=== PATIENT | female | born 1960 | race Caucasian/White ===

== ENCOUNTER 2016-09-30 21:56 | Inpatient (IN) | payer OTHER ==
[~2016-09-30] VITALS: Ht 165.1 cm; Wt 47.6 kg
[2016-09-30] MEDS ORDERED: HIV MEDS (22:07)
[2016-09-30] MEDS ORDERED: QUETIAPINE FUMA25 MG ORAL (22:07)
[2016-09-30] MEDS ORDERED: JANUVIA25 MG ORAL (22:07)
[2016-09-30 23:40] LABS: BASOPHILS % (AUTO) 0.2 % (0.0-2.0); LYMPHOCYTES % (AUTO) 9.9 % (20.0-45.0); MEAN CORPUSCULAR HGB CONC 33.4 G/DL (32.0-36.0); MEAN CORPUSCULAR VOLUME 93 FL (80-99); MEAN PLATELET VOLUME 5.9 FL (6.5-10.1); MONOCYTES % (AUTO) 5.3 % (1.0-10.0); NEUTROPHILS % (AUTO) 84.6 % (45.0-75.0); PLATELET COUNT 183 K/UL (150-450); RED BLOOD COUNT 4.77 M/UL (4.20-5.40); RED CELL DISTRIBUTION WIDTH 11.8 % (11.6-14.8)
[2016-09-30 23:47] LABS: TROPONIN I < 0.30 ng/mL (<=0.30)
[2016-09-30 23:48] LABS: ALBUMIN/GLOBULIN RATIO 1.5 (1.0-2.7); CALCIUM 9.9 mg/dL (8.6-10.2); CREATININE 4.3 mg/dL (0.5-0.9); GLOMERULAR FILTRATION RATE 10.7 mL/min (>60); POTASSIUM 4.1 mEQ/L (3.4-4.9); TOTAL PROTEIN 9.3 g/dL (6.6-8.7)
[2016-09-30 23:58] LABS: CKMB 125.1 ng/mL (< 3.8)
[2016-10-01] VITALS (8 sets, daily range): BP systolic 94–137; BP diastolic 59–89
[2016-10-01] MEDS ORDERED: LORazepam Inj 2mg/ml 1ml IV ONE (01:00)
--- NOTE | 2016-10-01 01:15 | Emergency Room Report ---
History of Present Illness General Chief Complaint: Pain Source: Patient, EMS Present Illness HPI 56YOF [place]EMS [place]. Patient endorses difficulty ambulating d/t weakness bilateral extremities but unsure for how long. Denies any trauma. Notes HIV history but doesnt have her medications " with me." Denies chest pain, SOB, abd pain. Denies ETOH, drug use. States she is living in the [address]. Repeatedly asking for water. Allergies: Coded Allergies: No Known Allergies (Unverified , 09/30/16) Patient History Past Medical History: HIV Past Surgical History: none Pertinent Family History: none Social History: Denies: alcohol use, drug use, smoking Now: No Immunizations: UTD Reviewed Nursing Documentation: PMH: Agreed, PSxH: Agreed Nursing Documentation-PMH Hx Diabetes: Yes History Of Psychiatric Problem: Yes Review of Systems All Other Systems: negative except mentioned in HPI Physical Exam Vital Signs Date Time Temp Pulse Resp B/P Pulse Ox O2 Delivery O2 Flow Rate FiO2 09/30/16 21:59 96.6 118 16 120/68 99 Room Air Sp02 EP Interpretation: reviewed, abnormal General Appearance: normal inspection, no apparent distress, alert, GCS 15, non -toxic, cachetic, thin, other - emaciated, unkempt, anxious Head: normocephalic, atraumatic Eyes: bilateral eye EOMI, bilateral eye PERRL ENT: normal ENT inspection, hearing grossly normal, normal voice, dry mucus membranes Neck: normal inspection, full range of motion, supple, no bony tend Respiratory: normal inspection, lungs clear, normal breath sounds, no respiratory distress, no retraction, no wheezing Cardiovascular #1: regular rate, rhythm, no edema, tachycardia Gastrointestinal: normal inspection, normal bowel sounds, non tender, soft, no guarding, no hernia Genitourinary: no CVA tenderness Musculoskeletal: normal inspection, back normal, normal range of motion, Leann' s Sign negative Neurologic: normal inspection, alert, oriented x3, responsive, learning support resource room teacher III-XII nml as tested, motor strength/tone normal, speech normal Psychiatric: normal inspection, judgement/insight normal, mood/affect normal Skin: normal inspection, normal color, no rash, other - Poor turgor, dehydrated Medical Decision Making Diagnostic Impression: Primary Impression: Lower extremity weakness Qualified Codes: R29.898 - Other symptoms and signs involving the musculoskeletal system Additional Impressions: MARIA ESTHER (acute kidney injury) Rhabdomyolysis Qualified Codes: M62.82 - Rhabdomyolysis Hypernatremia Anxiety ER Course Lower extremity weakness, bilateral - VS notable for tachycardia. Afebrile. - No obvious deficit in motor strength on exam but is unsteady on feet. Dry tugor, clinically dehydrated -CT head negative - Labs with ?MARIA ESTHER with significant rhabdo. K normal. Minor hypernatremia. Likely hypovolumic hypernatremia d/t dehydration. - 2L NS IVF given in ED for rhabdo, dehydration Anxiety - Patient repeatedly walking around ED, cant sit still. Very anxious. ? underlying psych, possibly related to advanced HIV? - Was given ativan in ED with mild improvement - QTc was normal on ECG so was also given Haldol as patient repeatedly trying to get up from stretcher, very anxious appearing Endorsed to Dr Amador for tele admission at 2am EKG Diagnostic Results Rate: tachycardiac Rhythm: NSR ST Segments: no acute changes Rhythm Strip Diag. Results EP Interpretation: yes Rate: 111 Rhythm: NSR, no PVC's, no ectopy Chest X-Ray Diagnostic Results Chest X-Ray Ordered: Yes # of Views/Limited/Complete: 1 View Interpretation: no consolidation, no effusion, no pneumothorax, no acute cardiopulmonary disease Indication: Chest Pain Impression: No acute disease Date Electronically Signed: Oct 01, 2016 Time Electronically Signed: 01:24 Interpreting ER Physician: Fili Last Vital Signs Date Time Temp Pulse Resp B/P Pulse Ox O2 Delivery O2 Flow Rate FiO2 09/30/16 21:59 96.6 118 16 120/68 99 Room Air Status: improved Disposition: ADMITTED INPATIENT Condition: Serious Referrals: NOT CHOSEN IPA/,REFERRING (PCP) CUCO MULLINS M.D. Oct 01, 2016 01:15
[2016-10-01] MEDS ORDERED: Haloperidol 5mg/ml Inj IM ONE (01:45)
[2016-10-01] MEDS ORDERED: LORazepam 1mg tab ORAL ONE (01:45)
[2016-10-01] MEDS ORDERED: Miralax 17gm pkt ORAL PRN (05:45)
[2016-10-01] MEDS ORDERED: DuoNeb 0.5-3(2.5)mg/3ml neb HHN PRN (05:45)
[2016-10-01] MEDS ORDERED: Mylanta II UD 30ml ORAL PRN (05:45)
[2016-10-01] MEDS ORDERED: Morphine Sulfate 2mg/ml Inj IVP PRN (05:45)
[2016-10-01] MEDS ORDERED: Zolpidem 5mg tab ORAL PRN (05:45)
[2016-10-01] MEDS: NovoLOG Insulin Flexpen SUBQ SCH ×4 (07:24→21:00)
[2016-10-01] MEDS: Heparin 5000 units/ml inj SUBQ SCH ×2 (08:10→21:32)
--- NOTE | 2016-10-01 08:54 | Diagnostic Imaging Report ---
Indication: Shortness of breath Technique: Single portable AP view of the chest. Findings: Comparison: None. Bones appear mildly, diffusely demineralized. Focal chronic appearing deformity distal end right clavicle. Mild S-shaped scoliosis thoracolumbar spine. The Extra pulmonary soft tissues, cardiomediastinal silhouette, pulmonary vasculature and parenchyma, and pleural surfaces are unremarkable. IMPRESSION: No evidence of acute cardiopulmonary disease Osteopenia, prominent for age Scoliosis. Right clavicle deformity most likely old fracture. Correlate historically.
--- NOTE | 2016-10-01 08:59 | Diagnostic Imaging Report ---
Indications: Dizziness Technique: Continuous helical CT imaging of the brain was performed with automatic exposure control on a Siemens sensation [address] scanner. Axial and coronal images were reconstructed at 5 mm slice thickness and interval. CTDI volume(s): 70 mGy Total DLP: 1453 mGy-cm Findings: Comparison: None. Intracranial anatomy is unremarkable. No evidence of mass or hemorrhage, other attenuation abnormality, mass effect, midline shift, hydrocephalus or increased intracranial pressure. Bone window images are unremarkable. Visualized paranasal sinuses and mastoid air cells are clear. Nodular calcifications are present in the soft tissues of the pinna of the left ear IMPRESSION: Left ear soft tissue calcifications, nonspecific, likely secondary to previous insult Otherwise negative noncontrast CT scan of the brain . Early/subtle acute abnormalities may be missed, however. If clinically indicated, MRI of the brain without and with gadolinium may be of benefit in further evaluation. This correlates with [facility] preliminary report. The CT scanner at [facility] is accredited by the [employer] and the scans are performed using protocols designed to limit radiation exposure to as low as reasonably achievable to attain images of sufficient resolution adequate for diagnostic evaluation.
[2016-10-01 10:30] LABS: ALANINE AMINOTRANSFERASE 66 U/L (3-33); ALBUMIN/GLOBULIN RATIO 1.5 (1.0-2.7); ANION GAP 20 (5-15); ASPARTATE AMINO TRANSFERASE 305 U/L (5-40); CALCIUM 8.5 mg/dL (8.6-10.2); CARBON DIOXIDE 18 mEQ/L (20-30); CHLORIDE 109 mEQ/L (98-107); CREATININE 3.3 mg/dL (0.5-0.9); GLOMERULAR FILTRATION RATE 14.5 mL/min (>60); HEMOLYSIS 3; MAGNESIUM 2.9 mg/dL (1.7-2.5); PHOSPHORUS 7.9 mg/dL (2.5-4.8); POTASSIUM 3.6 mEQ/L (3.4-4.9); SODIUM 147 mEQ/L (135-145); TOTAL PROTEIN 7.1 g/dL (6.6-8.7); URIC ACID 11.2 mg/dL (3.0-7.5)
--- NOTE | 2016-10-01 22:13 | History and Physical ---
History of Present Illness General Date patient seen: Oct 01, 2016 Reason for Hospitalization: Pain Present Illness HPI 56 year old female with hx of HIV [place] in [place] param[place]ics [place] Patient complains of difficulty ambulating d/t weakness bilateral extremities but unsure for how long. Denied ETOH, drug use. States she is living in the [address]. Pt was diagnosed to have acute renal failure and admitted for further treatment. Allergies: Coded Allergies: No Known Allergies (Unverified , 09/30/16) Medication History Scheduled Quetiapine Fumarate* (Seroquel*), 25 MG ORAL DAILY, (Reported) Sitagliptin* (Januvia*), 25 MG ORAL DAILY, (Reported) Miscellaneous Medications [Hiv Meds], (Reported) Patient History Healthcare decision maker Resuscitation status Full Code Advanced Directive on File Past Medical/Surgical History Past Medical/Surgical History: (1) HIV disease Review of Systems Constitutional: Reports: malaise, weakness Musculoskeletal: Reports: muscle pain, muscle stiffness All Other Systems: negative except mentioned in HPI Physical Exam General Appearance: cachetic Lines, tubes and drains: peripheral HEENT: normocephalic, atraumatic Neck: non-tender, normal alignment Respiratory/Chest: chest wall non-tender, lungs clear Cardiovascular/Chest: normal peripheral pulses, normal rate Abdomen: normal bowel sounds, non tender Genitourinary/Rectal: normal genital exam Extremities: normal range of motion Last 24 Hour Vital Signs Date Time Temp Pulse Resp B/P Pulse Ox O2 Delivery O2 Flow Rate FiO2 10/01/16 20:00 97.9 71 18 99/59 100 Room Air 10/01/16 19:45 84 18 Room Air 21 10/01/16 16:00 92 10/01/16 16:00 97.2 84 16 109/70 93 Room Air 80 10/01/16 12:00 97.0 83 16 96/64 96 Room Air 80 10/01/16 12:00 83 10/01/16 08:08 87 17 Room Air 21 10/01/16 08:00 97.0 89 17 114/71 94 Room Air 86 10/01/16 08:00 100 10/01/16 04:40 97.5 69 20 99/61 99 Room Air 10/01/16 04:39 97.5 89 24 112/71 97 Room Air 10/01/16 03:49 89 24 112/71 97 Room Air 10/01/16 01:50 120 18 119/67 100 Room Air 10/01/16 00:15 97.5 106 24 137/89 99 Room Air Intake and Output 09/30/16 10/01/16 19:00 07:00 Intake Total 1000 ml Balance 1000 ml Intake Oral 0 ml IV Total 1000 ml Laboratory Tests Test 09/30/16 23:05 10/01/16 09:40 White Blood Count 11.0 K/UL (4.8-10.8) H Red Blood Count 4.77 M/UL (4.20-5.40) Hemoglobin 14.8 G/DL (12.0-16.0) Hematocrit 44.2 % (37.0-47.0) Mean Corpuscular Volume 93 FL (80-99) Mean Corpuscular Hemoglobin 31.0 PG (27.0-31.0) Mean Corpuscular Hemoglobin Concent 33.4 G/DL (32.0-36.0) Red Cell Distribution Width 11.8 % (11.6-14.8) Platelet Count 183 K/UL (150-450) Mean Platelet Volume 5.9 FL (6.5-10.1) L Neutrophils (%) (Auto) 84.6 % (45.0-75.0) H Lymphocytes (%) (Auto) 9.9 % (20.0-45.0) L Monocytes (%) (Auto) 5.3 % (1.0-10.0) Eosinophils (%) (Auto) 0.0 % (0.0-3.0) Basophils (%) (Auto) 0.2 % (0.0-2.0) Sodium Level 151 mEQ/L (135-145) H 147 mEQ/L (135-145) H Potassium Level 4.1 mEQ/L (3.4-4.9) 3.6 mEQ/L (3.4-4.9) Chloride Level 105 mEQ/L (98-107) 109 mEQ/L (98-107) H Carbon Dioxide Level 19 mEQ/L (20-30) L 18 mEQ/L (20-30) L Anion Gap 27 (5-15) H 20 (5-15) H Blood Urea Nitrogen 70 mg/dL (7-23) H 75 mg/dL (7-23) H Creatinine 4.3 mg/dL (0.5-0.9) H 3.3 mg/dL (0.5-0.9) H Estimat Glomerular Filtration Rate 10.7 mL/min (>60) 14.5 mL/min (>60) Glucose Level 126 mg/dL (74-106) H 145 mg/dL (74-106) H Calcium Level 9.9 mg/dL (8.6-10.2) 8.5 mg/dL (8.6-10.2) L Total Bilirubin 0.7 mg/dL (0.0-1.2) 0.6 mg/dL (0.0-1.2) Aspartate Amino Transf (AST/SGOT) 321 U/L (5-40) H 305 U/L (5-40) H Alanine Aminotransferase (ALT/SGPT) 68 U/L (3-33) H 66 U/L (3-33) H Alkaline Phosphatase 57 U/L (35-104) 42 U/L (35-104) Total Creatine Kinase 1413 U/L (26-140) H 1313 U/L (26-140) H Creatine Kinase MB 125.1 ng/mL (< 3.8) H Creatine Kinase MB Relative Index 8.8 Troponin I < 0.30 ng/mL (<=0.30) Total Protein 9.3 g/dL (6.6-8.7) H 7.1 g/dL (6.6-8.7) Albumin 5.7 g/dL (3.5-5.2) H 4.3 g/dL (3.5-5.2) Globulin 3.6 g/dL 2.8 g/dL Albumin/Globulin Ratio 1.5 (1.0-2.7) Pending Uric Acid 11.2 mg/dL (3.0-7.5) H Phosphorus Level 7.9 mg/dL (2.5-4.8) H Magnesium Level 2.9 mg/dL (1.7-2.5) H Total Protein (PEP) Pending Albumin (PEP) Pending Globulin (PEP) Pending Eprvx-2-[place] Pending Mueqd-7-Bbxcpivce Pending Beta Globulins Pending Beta Gamma Globulin Pending PEP Abnormal Protein Bands Pending Protein Electrophoresis Interpret Pending Free Thyroxine 1.21 ng/dL (0.86-1.85) Free Triiodothyronine Pending Height (Feet): 5 Height (Inches): 5.00 Weight (Pounds): 105 Medications Current Medications Medications (Trade) Dose Ordered Sig/Beth Route PRN Reason Start Time Stop Time Status Last Admin Dose Admin Acetaminophen (Tylenol) 650 mg Q4H PRN ORAL fever 10/01/16 05:45 10/31/16 05:44 Al Hydroxide/Mg Hydroxide (Mylanta II) 30 ml Q6H PRN ORAL dyspepsia 10/01/16 05:45 10/31/16 05:44 Albuterol/ Ipratropium (DuoNeb 0.5-3(2.5)mg/3ml) 3 ml Q6H PRN HHN dyspnea 10/01/16 05:45 10/06/16 05:44 Clonidine HCl (Catapres) 0.1 mg Q4H PRN ORAL For High Blood Pressure 10/01/16 05:45 10/31/16 05:44 Dextrose (Dextrose 50%) STAT PRN IV Hypoglycemia 10/01/16 05:45 10/31/16 05:44 Heparin Sodium (Porcine) (Heparin 5000 units/ml) 5,000 units EVERY 12 HOURS SUBQ 10/01/16 09:00 10/31/16 08:59 10/01/16 21:32 Insulin Aspart (NovoLOG) BEFORE MEALS AND HS SUBQ 10/01/16 06:30 10/31/16 06:29 10/01/16 12:48 Morphine Sulfate (Morphine Sulfate) 1 mg Q4H PRN IVP For Pain 10/01/16 05:45 10/08/16 05:44 Ondansetron HCl (Zofran) 4 mg Q6H PRN IVP Nausea & Vomiting 10/01/16 05:45 10/31/16 05:44 Polyethylene Glycol (Miralax) 17 gm HSPRN PRN ORAL Constipation 10/01/16 05:45 10/31/16 05:44 Quetiapine Fumarate (SEROquel) 25 mg QHS ORAL 10/01/16 21:00 10/31/16 20:59 10/01/16 21:29 Zolpidem Tartrate (Ambien) 5 mg HSPRN PRN ORAL Insomnia 10/01/16 05:45 10/31/16 05:44 Assessment/Plan Problem List: (1) ATN (acute tubular necrosis) ICD Codes: N17.0 - Acute kidney failure with tubular necrosis SNOMED: 72883476 (2) Rhabdomyolysis ICD Codes: M62.82 - Rhabdomyolysis SNOMED: 892946394 Qualifiers: Qualified Codes: M62.82 - Rhabdomyolysis (3) HIV disease ICD Codes: B20 - Human immunodeficiency virus [HIV] disease SNOMED: 88814159 Assessment/Plan IV fluids renal us check electrolytes pt/ot MINOO WORKMAN Oct 01, 2016 22:13
[2016-10-02] VITALS: BP 107/65
[2016-10-02 04:07] VITALS: BP 97/57
[2016-10-02 04:39] LABS: BASOPHILS % (AUTO) 0.8 % (0.0-2.0); EOSINOPHILS % (AUTO) 0.9 % (0.0-3.0); LYMPHOCYTES % (AUTO) 23.2 % (20.0-45.0); MEAN CORPUSCULAR HEMOGLOBIN 31.2 PG (27.0-31.0); MEAN CORPUSCULAR HGB CONC 34.5 G/DL (32.0-36.0); MEAN CORPUSCULAR VOLUME 91 FL (80-99); MEAN PLATELET VOLUME 5.8 FL (6.5-10.1); NEUTROPHILS % (AUTO) 69.1 % (45.0-75.0); PLATELET COUNT 104 K/UL (150-450); RED BLOOD COUNT 3.75 M/UL (4.20-5.40); RED CELL DISTRIBUTION WIDTH 11.4 % (11.6-14.8); WHITE BLOOD COUNT 6.2 K/UL (4.8-10.8)
[2016-10-02 04:59] LABS: ALBUMIN/GLOBULIN RATIO 1.4 (1.0-2.7); CALCIUM 8.5 mg/dL (8.6-10.2); CHOLESTEROL/HDL RATIO 4.2 (3.3-4.4); CREATININE 1.8 mg/dL (0.5-0.9); GLOMERULAR FILTRATION RATE 29.2 mL/min (>60); POTASSIUM 3.8 mEQ/L (3.4-4.9); TOTAL PROTEIN 6.2 g/dL (6.6-8.7)
[2016-10-02 05:13] LABS: THYROID STIMULATING HORMONE 0.282 uIU/mL (0.300-4.500)
[2016-10-02] MEDS: NovoLOG Insulin Flexpen SUBQ SCH ×5 (05:53→21:00)
[2016-10-02 08:24] VITALS: BP 96/66
[2016-10-02] MEDS: Heparin 5000 units/ml inj SUBQ SCH ×2 (09:24→20:56)
--- NOTE | 2016-10-02 11:19 | Consultation ---
SAVANNA MCCLOUD M.D. Oct 02, 2016 11:19
--- NOTE | 2016-10-02 11:44 | Pulmonology Progress Note ---
Assessment/Plan Problems: (1) ATN (acute tubular necrosis) (2) Rhabdomyolysis (3) HIV disease Assessment/Plan improving check electrolytes renal us renal and ID evaluation med/surg Subjective ROS Limited/Unobtainable: No Constitutional: Reports: no symptoms HEENT: Repors: no symptoms Respiratory: Reports: no symptoms Cardiovascular: Reports: no symptoms Gastrointestinal/Abdominal: Reports: no symptoms Genitourinary: Reports: no symptoms Allergies: Coded Allergies: No Known Allergies (Unverified , 09/30/16) Objective Last 24 Hour Vital Signs Date Time Temp Pulse Resp B/P Pulse Ox O2 Delivery O2 Flow Rate FiO2 10/02/16 08:24 98.2 73 18 96/66 96 Room Air 10/02/16 08:00 77 10/02/16 07:08 80 18 Room Air 21 10/02/16 04:07 97.5 67 20 97/57 97 Room Air 10/02/16 04:00 73 10/02/16 00:00 69 10/02/16 00:00 96.8 64 18 107/65 98 Room Air 10/01/16 20:00 71 10/01/16 20:00 97.9 71 18 99/59 100 Room Air 10/01/16 19:45 84 18 Room Air 21 10/01/16 16:00 92 10/01/16 16:00 97.2 84 16 109/70 93 Room Air 80 10/01/16 12:00 97.0 83 16 96/64 96 Room Air 80 10/01/16 12:00 83 Intake and Output 10/01/16 10/02/16 19:00 07:00 Intake Total 1460 ml Balance 1460 ml Intake Oral 460 ml IV Total 1000 ml # Voids 2 2 # Bowel Movements 2 General Appearance: WD/WN HEENT: normocephalic, atraumatic Respiratory/Chest: chest wall non-tender, lungs clear Breasts: no masses Cardiovascular: normal peripheral pulses Abdomen: normal bowel sounds, soft, non tender Genitourinary: normal external genitalia Skin: no rash Laboratory Tests 10/02/16 04:30: White Blood Count 6.2, Red Blood Count 3.75L, Hemoglobin 11.7L, Hematocrit 33.9L , Mean Corpuscular Volume 91, Mean Corpuscular Hemoglobin 31.2H, Mean Corpuscular Hemoglobin Concent 34.5, Red Cell Distribution Width 11.4L, Platelet Count 104L, Mean Platelet Volume 5.8L, Neutrophils (%) (Auto) 69.1, Lymphocytes (%) (Auto) 23.2, Monocytes (%) (Auto) 6.0, Eosinophils (%) (Auto) 0.9, Basophils (%) (Auto) 0.8, Sodium Level 146H, Potassium Level 3.8, Chloride Level 110H, Carbon Dioxide Level 22, Anion Gap 14, Blood Urea Nitrogen 52H, Creatinine 1.8H, Estimat Glomerular Filtration Rate 29.2, Glucose Level 94, Hemoglobin A1c 5.0, Calcium Level 8.5L, Total Bilirubin 0.6, Aspartate Amino Transf (AST/SGOT) 552H, Alanine Aminotransferase (ALT/SGPT) 126H, Alkaline Phosphatase 38, Total Protein 6.2L, Albumin 3.7, Globulin 2.5, Albumin/Globulin Ratio 1.4, Triglycerides Level 118, Cholesterol Level 152, LDL Cholesterol 92, HDL Cholesterol 36, Cholesterol/HDL Ratio 4.2, Thyroid Stimulating Hormone (TSH ) 0.282L Current Medications Medications (Trade) Dose Ordered Sig/Beth Route PRN Reason Start Time Stop Time Status Last Admin Dose Admin Acetaminophen (Tylenol) 650 mg Q4H PRN ORAL fever 10/01/16 05:45 10/31/16 05:44 Al Hydroxide/Mg Hydroxide (Mylanta II) 30 ml Q6H PRN ORAL dyspepsia 10/01/16 05:45 10/31/16 05:44 Albuterol/ Ipratropium (DuoNeb 0.5-3(2.5)mg/3ml) 3 ml Q6H PRN HHN dyspnea 10/01/16 05:45 10/06/16 05:44 Clonidine HCl (Catapres) 0.1 mg Q4H PRN ORAL For High Blood Pressure 10/01/16 05:45 10/31/16 05:44 Dextrose (Dextrose 50%) STAT PRN IV Hypoglycemia 10/01/16 05:45 10/31/16 05:44 Heparin Sodium (Porcine) (Heparin 5000 units/ml) 5,000 units EVERY 12 HOURS SUBQ 10/01/16 09:00 10/31/16 08:59 10/02/16 09:24 Insulin Aspart (NovoLOG) BEFORE MEALS AND HS SUBQ 10/01/16 06:30 10/31/16 06:29 10/01/16 12:48 Morphine Sulfate (Morphine Sulfate) 1 mg Q4H PRN IVP For Pain 10/01/16 05:45 10/08/16 05:44 Ondansetron HCl (Zofran) 4 mg Q6H PRN IVP Nausea & Vomiting 10/01/16 05:45 10/31/16 05:44 Polyethylene Glycol (Miralax) 17 gm HSPRN PRN ORAL Constipation 10/01/16 05:45 10/31/16 05:44 Quetiapine Fumarate (SEROquel) 25 mg QHS ORAL 10/01/16 21:00 10/31/16 20:59 10/01/16 21:29 Zolpidem Tartrate (Ambien) 5 mg HSPRN PRN ORAL Insomnia 10/01/16 05:45 10/31/16 05:44 MINOO WORKMAN Oct 02, 2016 11:44
[2016-10-02 11:54] VITALS: BP 95/64
--- NOTE | 2016-10-02 12:06 | Consultation ---
Consult Note Consult Note ID # [id number] SAVANNA MCCLOUD M.D. Oct 02, 2016 12:06
[2016-10-02] MEDS: Bactrim DS (160mg/800mg) tab ORAL SCH (13:00)
--- NOTE | 2016-10-02 13:36 | Diagnostic Imaging Report ---
Indications: Elevated renal function tests Technique: Transabdominal real-time grayscale and duplex Doppler imaging of the kidneys, retroperitoneum, and urinary bladder was performed Findings: Comparison: None Right kidney measures 9.8 cm in length. Normal contour, echotexture, cortical thickness. No stones, other focal lesions, hydronephrosis, or obvious perinephric abnormalities. Left kidney measures 8.7 cm in length. Normal contour, echotexture, cortical thickness. No stones, other focal lesions, hydronephrosis, or obvious perinephric abnormalities. The intrahepatic portion of inferior vena cava is patent and normal caliber. The urinary bladder is distended without obvious abnormality. IMPRESSION: Negative retroperitoneal ultrasound--sonographically unremarkable kidneys
--- NOTE | 2016-10-02 15:39 | Consultation ---
Consult Note Consult Note 56YOF [place]EM[place] Patient endorses difficulty ambulating d/t weakness bilateral extremities but unsure for how long. Denies any trauma. Notes HIV history but doesnt have her medications " with me." Denies chest pain, SOB, abd pain. Denies ETOH, drug use. States [place] is living in [address] [place]. Repeatedly asking for water. Past Medical History: HIV Hx Diabetes: Yes History Of Psychiatric Problem: Yes . Assessment/Plan status; (1) ATN (acute tubular necrosis) (2) Rhabdomyolysis (3) HIV disease Plan; Hydrate- Protonix- monitor renal parametrers- urine study per orders GILL WALTERS Oct 02, 2016 15:39
[2016-10-02] MEDS: D5 1/2NS 1,000 ML IV SCH (15:45)
[2016-10-02 16:00] VITALS: BP 96/61
[2016-10-02 20:00] VITALS: BP 97/59
--- NOTE | 2016-10-02 20:05 | Cardiology Report ---
APPROVED REPORT EKG Measurement Heart [id number] Sinus tachycardia Possible Left atrial enlargement Borderline ECG
--- NOTE | 2016-10-02 21:30 | Consultation ---
DATE OF CONSULTATION: 10/02/2016 INFECTIOUS DISEASE CONSULTATION CONSULTING PHYSICIAN: Nathaniel Parker M.D REFERRING PHYSICIAN: Ricky Amador M.D. REASON FOR CONSULTATION: Evaluation of patient for HIV. HISTORY OF PRESENT ILLNESS: The patient is a 56-year-old female with multiple medical problems who came to the hospital because of weakness. The patient mentioned to have lower extremity pain that is making it difficult for her to walk. The patient has a history of HIV, on HIV medications. She did not know about the status of her HIV, CD4 count and viral load. However, she has followed up with her HIV provider. PAST MEDICAL HISTORY: 1. HIV (unknown CD4 count and viral load), on HIV medications. 2. Diabetes. ALLERGIES: No known drug allergies. SOCIAL HISTORY: She is homeless. FAMILY HISTORY: Noncontributory. REVIEW OF SYSTEMS: HEENT: No recent change in vision or hearing. Pulmonary: No cough or shortness of breath. Cardiovascular: No chest pain or palpitation. Gastrointestinal/Abdomen: No nausea or vomiting. Genitourinary: No dysuria. Musculoskeletal: As mentioned above. MEDICATIONS: Antibiotics. The patient is on Genvoya as an outpatient 1 tablet daily and also Bactrim DS 1 tablet daily. PHYSICAL EXAMINATION: VITAL SIGNS: Temperature 98.1, blood pressure 95/61, pulse 64, and respiratory rate 18. HEENT: Mild conjunctivae. No icterus. NECK: No lymphadenopathy. CHEST: Clear. HEART: S1 and S2. ABDOMEN: Soft and nontender. EXTREMITIES: No cyanosis or extremity edema. LABORATORY DATA: White blood cells at the time of admission 11, today is 6.3; hemoglobin 11.7; and platelets 104,000. BUN 52, creatinine 1.8. AST 552, ALT 128, alkaline phosphatase 58. ASSESSMENT: 1. Human immunodeficiency virus, unknown CD4 count and viral load, probable acquired immunodeficiency syndrome in view of the patient being on Bactrim. Most likely CD4 count less than 200. 2. Transaminitis (suspect alcohol abuse), rule out chronic hepatitis B and C. 3. Diabetes. 4. Lower extremity pain, however, this appears to be nonfocal. PLAN: 1. We will continue the patient on Genvoya and on Bactrim DS (the patient may take her home medication). 2. No need for IV antibiotics. 3. Hepatitis panel. 4. Check CD4 count. 5. Based on the patient's clinical course and labs, we will give further recommendations. Thank you Dr. Amador, for allowing me to participate in the care of this patient. I will follow the patient with you during this hospitalization. Nathaniel Parker M.D. DR: MORAIMA JOB#: [id number] CC:
[2016-10-03] VITALS: BP 107/50
[2016-10-03] MEDS: D5 1/2NS 1,000 ML IV SCH ×3 (01:45→12:03)
[2016-10-03 04:00] VITALS: BP 106/66
[2016-10-03] MEDS: NovoLOG Insulin Flexpen SUBQ SCH (05:51)
[2016-10-03 07:09] LABS: BASOPHILS % (AUTO) 0.8 % (0.0-2.0); EOSINOPHILS % (AUTO) 3.4 % (0.0-3.0); MEAN CORPUSCULAR HEMOGLOBIN 31.9 PG (27.0-31.0); MEAN CORPUSCULAR HGB CONC 35.8 G/DL (32.0-36.0); MEAN CORPUSCULAR VOLUME 89 FL (80-99); MEAN PLATELET VOLUME 6.8 FL (6.5-10.1); MONOCYTES % (AUTO) 9.8 % (1.0-10.0); PLATELET COUNT 123 K/UL (150-450); RED BLOOD COUNT 3.96 M/UL (4.20-5.40); RED CELL DISTRIBUTION WIDTH 11.1 % (11.6-14.8); WHITE BLOOD COUNT 3.5 K/UL (4.8-10.8)
[2016-10-03 07:19] LABS: ALANINE AMINOTRANSFERASE 133 U/L (3-33); ALBUMIN/GLOBULIN RATIO 1.4 (1.0-2.7); ANION GAP 16 (5-15); ASPARTATE AMINO TRANSFERASE 404 U/L (5-40); CALCIUM 8.8 mg/dL (8.6-10.2); CARBON DIOXIDE 22 mEQ/L (20-30); CHLORIDE 106 mEQ/L (98-107); CREATININE 1.3 mg/dL (0.5-0.9); CRP QUANT < 0.3 mg/dL (< 0.5); GLOMERULAR FILTRATION RATE 42.5 mL/min (>60); HEMOLYSIS 6; MAGNESIUM 2.1 mg/dL (1.7-2.5); PHOSPHORUS 2.1 mg/dL (2.5-4.8); POTASSIUM 3.8 mEQ/L (3.4-4.9); SODIUM 144 mEQ/L (135-145)
[2016-10-03 07:22] LABS: URIC ACID 3.3 mg/dL (3.0-7.5)
[2016-10-03 08:00] VITALS: BP 100/62
[2016-10-03 08:22] LABS: APPEARANCE,URINE CLEAR; KETONES,URINE NEGATIVE (NEGATIVE); LEUKOCYTE ESTERASE ,URINE NEGATIVE (NEGATIVE); NITRITE,URINE NEGATIVE (NEGATIVE); PH,URINE 6 (4.5-8.0); PROTEIN,URINE NEGATIVE (NEGATIVE); UROBILINOGEN,URINE NORMAL MG/DL (0.0-1.0)
[2016-10-03] MEDS: Heparin 5000 units/ml inj SUBQ SCH ×2 (08:23→20:55)
[2016-10-03 08:31] LABS: ERYTHROCYTE SEDIMENTATION RATE 19 MM/HR (0-30)
[2016-10-03 08:33] LABS: BACTERIA,URINE OCCASIONAL /HPF; SQUAMOUS EPITHELIAL CELL,UR OCCASIONAL /LPF (NONE/OCC); WBC,URINE 0-2 /HPF (0 - 2)
[2016-10-03] MEDS: Bactrim DS (160mg/800mg) tab ORAL SCH (08:53)
--- NOTE | 2016-10-03 11:05 | General Progress Note ---
Assessment/Plan Status: stable Status Narrative renal failure resolving Assessment/Plan status; (1) ATN (acute tubular necrosis) due to Rhabdo- resolving (2) Rhabdomyolysis, CK remains high (3) HIV disease Plan; Hydrate- Protonix- monitor renal parametrers- urine study per orders Subjective ROS Limited/Unobtainable: No Constitutional: Reports: malaise Allergies: Coded Allergies: No Known Allergies (Unverified , 09/30/16) Objective Last 24 Hour Vital Signs Date Time Temp Pulse Resp B/P Pulse Ox O2 Delivery O2 Flow Rate FiO2 10/03/16 08:00 97.3 72 20 100/62 98 Room Air 10/03/16 07:46 67 18 Room Air 21 10/03/16 04:00 97.9 67 17 106/66 98 Room Air 10/03/16 00:00 98.2 71 20 107/50 98 Room Air 10/02/16 21:51 68 18 Room Air 21 10/02/16 20:00 98.4 74 20 97/59 99 Room Air 10/02/16 16:02 78 10/02/16 16:00 97.5 82 18 96/61 97 Room Air 10/02/16 12:40 79 10/02/16 11:54 98.1 64 18 95/64 98 Room Air Intake and Output 10/02/16 10/03/16 19:00 07:00 Intake Total 820 ml 1100 ml Balance 820 ml 1100 ml Intake Oral 720 ml IV Total 100 ml 1100 ml # Voids 4 3 Laboratory Tests 10/02/16 13:30: White Blood Count [Pending], Lymphocytes [Pending], Percent CD3 Cells [Pending] , Absolute CD3 Count [Pending], Percent CD4 Cells [Pending], Absolute CD4 Count [Pending], T-Lymphocyte CD4/CD8 Ratio [Pending], Percent CD8 Cells [Pending], Absolute CD8 Count [Pending], Hepatitis A IgM Antibody [Pending], Hepatitis B Surface Antigen [Pending], Hepatitis B Core IgM Antibody [Pending], Hepatitis C Antibody [Pending] 10/03/16 05:30: White Blood Count 3.5L, Red Blood Count 3.96L, Hemoglobin 12.6, Hematocrit 35.3L , Mean Corpuscular Volume 89, Mean Corpuscular Hemoglobin 31.9H, Mean Corpuscular Hemoglobin Concent 35.8, Red Cell Distribution Width 11.1L, Platelet Count 123L, Mean Platelet Volume 6.8, Neutrophils (%) (Auto) 55.0, Lymphocytes (%) (Auto) 31.0, Monocytes (%) (Auto) 9.8, Eosinophils (%) (Auto) 3.4H, Basophils (%) (Auto) 0.8, Erythrocyte Sedimentation Rate 19, Sodium Level 144, Potassium Level 3.8, Chloride Level 106, Carbon Dioxide Level 22, Anion Gap 16H, Blood Urea Nitrogen 27#H, Creatinine 1.3H, Estimat Glomerular Filtration Rate 42.5, Glucose Level 93, Uric Acid 3.3, Calcium Level 8.8, Phosphorus Level 2.1L, Magnesium Level 2.1, Total Bilirubin 0.4, Gamma Glutamyl Transpeptidase 10, Aspartate Amino Transf (AST/SGOT) 404H, Alanine Aminotransferase (ALT/SGPT) 133H, Alkaline Phosphatase 37, Total Creatine Kinase 6681H, C-Reactive Protein, Quantitative < 0.3, Pro-B-Type Natriuretic Peptide 661H, Total Protein 6.0L, Albumin 3.5, Globulin 2.5, Albumin/Globulin Ratio 1.4 10/03/16 07:40: Urine Color Pale yellow, Urine Appearance Clear, Urine pH 6, Urine Specific [place] 1.010, Urine Protein Negative, Urine Glucose (UA) Negative, Urine Ketones Negative, Urine Occult Blood 3+H, Urine Nitrite Negative, Urine Bilirubin Negative, Urine Urobilinogen Normal, Urine Leukocyte Esterase Negative , Urine RBC 2-4H, Urine WBC 0-2, Urine Squamous Epithelial Cells Occasional, Urine Bacteria Occasional, Urine Eosinophils None seen Height (Feet): 5 Height (Inches): 5.00 Weight (Pounds): 105 General Appearance: no apparent distress Cardiovascular: regular rhythm Respiratory/Chest: lungs clear Abdomen: soft Objective other PE not changed GILL WALTERS Oct 03, 2016 11:05
[2016-10-03] MEDS ORDERED: Morphine Sulfate 2mg/ml Inj IVP PRN (11:15)
--- NOTE | 2016-10-03 11:55 | Infectious Diseases Prog Note ---
Assessment/Plan Assessment/Plan A: : The patient is a 56-year-old female with Human immunodeficiency on Genvoya ? viral load , unknown CD4 count and viral load, probable acquired immunodeficiency syndrome in view of the patient being on Bactrim. Most likely CD4 count less than 200. Transaminitis (suspect alcohol abuse), rule out chronic hepatitis B , and C. MARIA ESTHER Anemia Gen weakness Diabetes PLAN: continue the patient on Genvoya and on Bactrim DS (the patient may take her home medication), DW PCP Monitor pt off of IV antibiotics Hepatitis panel. CD4 count Subjective Constitutional: Denies: anorexia, chills, drenching sweats, fatigue, fever, no symptoms, other Allergies: Coded Allergies: No Known Allergies (Unverified , 09/30/16) Objective Vital Signs Last 24 Hour Vital Signs Date Time Temp Pulse Resp B/P Pulse Ox O2 Delivery O2 Flow Rate FiO2 10/03/16 08:00 97.3 72 20 100/62 98 Room Air 10/03/16 07:46 67 18 Room Air 21 10/03/16 04:00 97.9 67 17 106/66 98 Room Air 10/03/16 00:00 98.2 71 20 107/50 98 Room Air 10/02/16 21:51 68 18 Room Air 21 10/02/16 20:00 98.4 74 20 97/59 99 Room Air 10/02/16 16:02 78 10/02/16 16:00 97.5 82 18 96/61 97 Room Air 10/02/16 12:40 79 10/02/16 11:54 98.1 64 18 95/64 98 Room Air Height (Feet): 5 Height (Inches): 5.00 Weight (Pounds): 105 HEENT: anicteric Respiratory/Chest: normal breath sounds Cardiovascular: regular rhythm Abdomen: no organomegaly Laboratory Tests Test 10/02/16 13:30 10/03/16 05:30 10/03/16 07:40 White Blood Count Pending 3.5 K/UL (4.8-10.8) L Lymphocytes Pending Percent CD3 Cells Pending Absolute CD3 Count Pending Percent CD4 Cells Pending Absolute CD4 Count Pending T-Lymphocyte CD4/CD8 Ratio Pending Percent CD8 Cells Pending Absolute CD8 Count Pending Hepatitis A IgM Antibody Pending Hepatitis B Surface Antigen Pending Hepatitis B Core IgM Antibody Pending Hepatitis C Antibody Pending Red Blood Count 3.96 M/UL (4.20-5.40) L Hemoglobin 12.6 G/DL (12.0-16.0) Hematocrit 35.3 % (37.0-47.0) L Mean Corpuscular Volume 89 FL (80-99) Mean Corpuscular Hemoglobin 31.9 PG (27.0-31.0) H Mean Corpuscular Hemoglobin Concent 35.8 G/DL (32.0-36.0) Red Cell Distribution Width 11.1 % (11.6-14.8) L Platelet Count 123 K/UL (150-450) L Mean Platelet Volume 6.8 FL (6.5-10.1) Neutrophils (%) (Auto) 55.0 % (45.0-75.0) Lymphocytes (%) (Auto) 31.0 % (20.0-45.0) Monocytes (%) (Auto) 9.8 % (1.0-10.0) Eosinophils (%) (Auto) 3.4 % (0.0-3.0) H Basophils (%) (Auto) 0.8 % (0.0-2.0) Erythrocyte Sedimentation Rate 19 MM/HR (0-30) Sodium Level 144 mEQ/L (135-145) Potassium Level 3.8 mEQ/L (3.4-4.9) Chloride Level 106 mEQ/L (98-107) Carbon Dioxide Level 22 mEQ/L (20-30) Anion Gap 16 (5-15) H Blood Urea Nitrogen 27 mg/dL (7-23) #H Creatinine 1.3 mg/dL (0.5-0.9) H Estimat Glomerular Filtration Rate 42.5 mL/min (>60) Glucose Level 93 mg/dL (74-106) Uric Acid 3.3 mg/dL (3.0-7.5) Calcium Level 8.8 mg/dL (8.6-10.2) Phosphorus Level 2.1 mg/dL (2.5-4.8) L Magnesium Level 2.1 mg/dL (1.7-2.5) Total Bilirubin 0.4 mg/dL (0.0-1.2) Gamma Glutamyl Transpeptidase 10 U/L (5-36) Aspartate Amino Transf (AST/SGOT) 404 U/L (5-40) H Alanine Aminotransferase (ALT/SGPT) 133 U/L (3-33) H Alkaline Phosphatase 37 U/L (35-104) Total Creatine Kinase 6681 U/L (26-140) H C-Reactive Protein, Quantitative < 0.3 mg/dL (< 0.5) Pro-B-Type Natriuretic Peptide 661 pg/mL (0-125) H Total Protein 6.0 g/dL (6.6-8.7) L Albumin 3.5 g/dL (3.5-5.2) Globulin 2.5 g/dL Albumin/Globulin Ratio 1.4 (1.0-2.7) Urine Color Pale yellow Urine Appearance Clear Urine pH 6 (4.5-8.0) Urine Specific [place] 1.010 (1.005-1.035) Urine Protein Negative (NEGATIVE) Urine Glucose (UA) Negative (NEGATIVE) Urine Ketones Negative (NEGATIVE) Urine Occult Blood 3+ (NEGATIVE) H Urine Nitrite Negative (NEGATIVE) Urine Bilirubin Negative (NEGATIVE) Urine Urobilinogen Normal MG/DL (0.0-1.0) Urine Leukocyte Esterase Negative (NEGATIVE) Urine RBC 2-4 /HPF (0 - 2) H Urine WBC 0-2 /HPF (0 - 2) Urine Squamous Epithelial Cells Occasional /LPF Urine Bacteria Occasional /HPF (NONE) Urine Eosinophils None seen Current Medications Medications (Trade) Dose Ordered Sig/Beth Route PRN Reason Start Time Stop Time Status Last Admin Dose Admin Acetaminophen (Tylenol) 650 mg Q4H PRN ORAL fever 10/01/16 05:45 10/31/16 05:44 Acetaminophen/ Codeine Phosphate 1 tab 1 tab Q6H PRN ORAL Moderate Pain (Pain Scale 4-6) 10/03/16 11:00 10/10/16 10:59 Albuterol/ Ipratropium (DuoNeb 0.5-3(2.5)mg/3ml) 3 ml Q6H PRN HHN dyspnea 10/01/16 05:45 10/06/16 05:44 Dextrose/Sodium Chloride (D5 0.45% NS) 1,000 ml @ 75 mls/hr [id number] IV 10/03/16 12:30 11/02/16 12:29 Heparin Sodium (Porcine) (Heparin 5000 units/ml) 5,000 units EVERY 12 HOURS SUBQ 10/01/16 09:00 10/31/16 08:59 10/02/16 09:24 Morphine Sulfate (Morphine Sulfate) 1 mg Q4H PRN IVP Severe Pain (Pain Scale 7-10) 10/03/16 11:15 10/10/16 11:14 Ondansetron HCl (Zofran) 4 mg Q6H PRN IVP Nausea & Vomiting 10/01/16 05:45 10/31/16 05:44 Pantoprazole (Protonix) 40 mg DAILY ORAL 10/03/16 12:30 11/02/16 12:29 Phosphorus (Phospha 250 Neutral) 500 mg THREE TIMES A DAY ORAL 10/03/16 13:00 11/02/16 12:59 Polyethylene Glycol (Miralax) 17 gm HSPRN PRN ORAL Constipation 10/01/16 05:45 10/31/16 05:44 Quetiapine Fumarate (SEROquel) 25 mg QHS ORAL 10/01/16 21:00 10/31/16 20:59 10/02/16 20:56 Trimethoprim/ Sulfamethoxazole (Bactrim-DS) 1 ea DAILY ORAL 10/02/16 13:00 10/09/16 12:59 10/03/16 08:53 Zolpidem Tartrate (Ambien) 5 mg HSPRN PRN ORAL Insomnia 10/01/16 05:45 10/31/16 05:44 SAVANNA MCCLOUD M.D. Oct 03, 2016 11:55
[2016-10-03] MEDS: Phospha 250 Neutral tab ORAL SCH ×3 (11:59→17:16)
[2016-10-03 12:00] VITALS: BP 110/68
[2016-10-03] MEDS: Tylenol #3 tab (300mg/30mg) ORAL PRN (12:00)
[2016-10-03] MEDS: GENVOYA TABLET ORAL SCH (15:23)
[2016-10-03 16:00] VITALS: BP 105/66
--- NOTE | 2016-10-03 17:14 | Pulmonology Progress Note ---
Assessment/Plan Problems: (1) ATN (acute tubular necrosis) (2) Rhabdomyolysis (3) HIV disease Assessment/Plan improving check electrolytes renal us renal and ID evaluation med/surg Subjective Allergies: Coded Allergies: No Known Allergies (Unverified , 09/30/16) Objective Last 24 Hour Vital Signs Date Time Temp Pulse Resp B/P Pulse Ox O2 Delivery O2 Flow Rate FiO2 10/03/16 16:00 97.9 59 20 105/66 100 Room Air 10/03/16 12:59 97.3 10/03/16 12:00 97.9 61 20 110/68 97 Room Air 10/03/16 08:00 97.3 72 20 100/62 98 Room Air 10/03/16 07:46 67 18 Room Air 21 10/03/16 04:00 97.9 67 17 106/66 98 Room Air 10/03/16 00:00 98.2 71 20 107/50 98 Room Air 10/02/16 21:51 68 18 Room Air 21 10/02/16 20:00 98.4 74 20 97/59 99 Room Air Intake and Output 10/02/16 10/03/16 19:00 07:00 Intake Total 820 ml 1100 ml Balance 820 ml 1100 ml Intake Oral 720 ml IV Total 100 ml 1100 ml # Voids 4 3 Laboratory Tests 10/03/16 05:30: White Blood Count 3.5L, Red Blood Count 3.96L, Hemoglobin 12.6, Hematocrit 35.3L , Mean Corpuscular Volume 89, Mean Corpuscular Hemoglobin 31.9H, Mean Corpuscular Hemoglobin Concent 35.8, Red Cell Distribution Width 11.1L, Platelet Count 123L, Mean Platelet Volume 6.8, Neutrophils (%) (Auto) 55.0, Lymphocytes (%) (Auto) 31.0, Monocytes (%) (Auto) 9.8, Eosinophils (%) (Auto) 3.4H, Basophils (%) (Auto) 0.8, Erythrocyte Sedimentation Rate 19, Sodium Level 144, Potassium Level 3.8, Chloride Level 106, Carbon Dioxide Level 22, Anion Gap 16H, Blood Urea Nitrogen 27#H, Creatinine 1.3H, Estimat Glomerular Filtration Rate 42.5, Glucose Level 93, Uric Acid 3.3, Calcium Level 8.8, Phosphorus Level 2.1L, Magnesium Level 2.1, Total Bilirubin 0.4, Gamma Glutamyl Transpeptidase 10, Aspartate Amino Transf (AST/SGOT) 404H, Alanine Aminotransferase (ALT/SGPT) 133H, Alkaline Phosphatase 37, Total Creatine Kinase 6681H, C-Reactive Protein, Quantitative < 0.3, Pro-B-Type Natriuretic Peptide 661H, Total Protein 6.0L, Albumin 3.5, Globulin 2.5, Albumin/Globulin Ratio 1.4 10/03/16 07:40: Urine Color Pale yellow, Urine Appearance Clear, Urine pH 6, Urine Specific [place] 1.010, Urine Protein Negative, Urine Glucose (UA) Negative, Urine Ketones Negative, Urine Occult Blood 3+H, Urine Nitrite Negative, Urine Bilirubin Negative, Urine Urobilinogen Normal, Urine Leukocyte Esterase Negative , Urine RBC 2-4H, Urine WBC 0-2, Urine Squamous Epithelial Cells Occasional, Urine Bacteria Occasional, Urine Eosinophils None seen Current Medications Medications (Trade) Dose Ordered Sig/Beth Route PRN Reason Start Time Stop Time Status Last Admin Dose Admin Acetaminophen (Tylenol) 650 mg Q4H PRN ORAL fever 10/01/16 05:45 10/31/16 05:44 Acetaminophen/ Codeine Phosphate 1 tab 1 tab Q6H PRN ORAL Moderate Pain (Pain Scale 4-6) 10/03/16 11:00 10/10/16 10:59 10/03/16 12:00 Albuterol/ Ipratropium (DuoNeb 0.5-3(2.5)mg/3ml) 3 ml Q6H PRN HHN dyspnea 10/01/16 05:45 10/06/16 05:44 Dextrose/Sodium Chloride (D5 0.45% NS) 1,000 ml @ 75 mls/hr [id number] IV 10/03/16 12:30 11/02/16 12:29 10/03/16 12:03 Heparin Sodium (Porcine) (Heparin 5000 units/ml) 5,000 units EVERY 12 HOURS SUBQ 10/01/16 09:00 10/31/16 08:59 10/02/16 09:24 Morphine Sulfate (Morphine Sulfate) 1 mg Q4H PRN IVP Severe Pain (Pain Scale 7-10) 10/03/16 11:15 10/10/16 11:14 Ondansetron HCl (Zofran) 4 mg Q6H PRN IVP Nausea & Vomiting 10/01/16 05:45 10/31/16 05:44 Pantoprazole (Protonix) 40 mg DAILY ORAL 10/03/16 12:30 11/02/16 12:29 Patient Own Medication (Patient's Own Med) 1 ea DAILY ORAL 10/03/16 15:00 11/02/16 14:59 10/03/16 15:23 Phosphorus (Phospha 250 Neutral) 500 mg THREE TIMES A DAY ORAL 10/03/16 13:00 11/02/16 12:59 Polyethylene Glycol (Miralax) 17 gm HSPRN PRN ORAL Constipation 10/01/16 05:45 10/31/16 05:44 Quetiapine Fumarate (SEROquel) 25 mg QHS ORAL 10/01/16 21:00 10/31/16 20:59 10/02/16 20:56 Trimethoprim/ Sulfamethoxazole (Bactrim-DS) 1 ea DAILY ORAL 10/02/16 13:00 10/09/16 12:59 10/03/16 08:53 Zolpidem Tartrate (Ambien) 5 mg HSPRN PRN ORAL Insomnia 10/01/16 05:45 10/31/16 05:44 MINOO WORKMAN Oct 03, 2016 17:14
[2016-10-03 20:00] VITALS: BP 102/64
[2016-10-04] VITALS: BP 110/60
[2016-10-04] MEDS: D5 1/2NS 1,000 ML IV SCH (00:14)
[2016-10-04 04:00] VITALS: BP 119/57
[2016-10-04 07:25] LABS: ALANINE AMINOTRANSFERASE 124 U/L (3-33); ALBUMIN/GLOBULIN RATIO 1.3 (1.0-2.7); ANION GAP 13 (5-15); ASPARTATE AMINO TRANSFERASE 275 U/L (5-40); CALCIUM 9.2 mg/dL (8.6-10.2); CARBON DIOXIDE 24 mEQ/L (20-30); CHLORIDE 105 mEQ/L (98-107); CREATININE 1.2 mg/dL (0.5-0.9); GLOMERULAR FILTRATION RATE 46.7 mL/min (>60); HEMOLYSIS 6; MAGNESIUM 1.7 mg/dL (1.7-2.5); PHOSPHORUS 2.5 mg/dL (2.5-4.8); SODIUM 142 mEQ/L (135-145); TOTAL PROTEIN 6.2 g/dL (6.6-8.7); URIC ACID 2.6 mg/dL (3.0-7.5)
[2016-10-04 08:00] VITALS: BP 102/65
[2016-10-04] MEDS: Heparin 5000 units/ml inj SUBQ SCH (09:00)
[2016-10-04] MEDS: GENVOYA TABLET ORAL SCH (09:00)
[2016-10-04] MEDS: Tylenol #3 tab (300mg/30mg) ORAL PRN (09:20)
[2016-10-04] MEDS: Phospha 250 Neutral tab ORAL SCH ×2 (09:21→12:57)
[2016-10-04] MEDS: Bactrim DS (160mg/800mg) tab ORAL SCH (09:21)
[2016-10-04 09:57] LABS: A/G RATIO 1.4 (0.7-1.7); ABNORMAL PROTEIN BAND 1 Not Observed g/dL (Not Observed); ALBUMIN 3.9 g/dL (2.9-4.4); ALPHA-1 GLOBULIN 0.2 g/dL (0.0-0.4); ALPHA-2 GLOBULIN 0.8 g/dL (0.4-1.0); BETA GLOBULIN 0.7 g/dL (0.7-1.3); GLOBULIN, TOTAL 2.8 g/dL (2.2-3.9); TOTAL PROTEIN 6.7 g/dL (6.0-8.5)
[2016-10-04 09:57] LABS: CD3 ABSOLUTE 962 /uL (622-2402); CD4 ABSOLUTE 109 /uL (359-1519); CD8 ABSOLUTE 832 /uL (109-897); LYMPHOCYTES ABSOLUTE 1.2 x10E3/uL (0.7-3.1); LYMPHS 24 % (.); WBC 4.8 x10E3/uL (3.4-10.8)
[2016-10-04 12:00] VITALS: BP 107/73
[2016-10-04] MEDS ORDERED: D5 1/2NS 1000ml IV ONE (14:21)
--- NOTE | 2016-10-04 15:12 | General Progress Note ---
Assessment/Plan Status: stable Status Narrative renal parameters improved Assessment/Plan status; (1) ATN (acute tubular necrosis) due to Rhabdo- resolving (2) Rhabdomyolysis, CK remains high (3) HIV disease Plan; Hydrate PO Protonix- monitor renal parametrers- Agree with DC planning Subjective Date patient seen: Oct 04, 2016 Time patient seen: 10:00 ROS Limited/Unobtainable: No Allergies: Coded Allergies: No Known Allergies (Unverified , 09/30/16) Objective Last 24 Hour Vital Signs Date Time Temp Pulse Resp B/P Pulse Ox O2 Delivery O2 Flow Rate FiO2 10/04/16 12:17 97.2 10/04/16 12:00 97.7 51 20 107/73 98 Room Air 10/04/16 08:00 97.2 65 20 102/65 98 Room Air 10/04/16 07:36 76 18 Room Air 10/04/16 04:00 97.5 62 20 119/57 97 Room Air 10/04/16 00:00 96.7 65 20 110/60 95 Room Air 10/03/16 20:00 98.2 60 20 102/64 99 Room Air 10/03/16 19:45 71 18 Room Air 10/03/16 16:00 97.9 59 20 105/66 100 Room Air Intake and Output 10/03/16 10/04/16 19:00 07:00 Intake Total 925 ml 900 ml Balance 925 ml 900 ml Intake Oral 200 ml IV Total 725 ml 900 ml # Voids 3 2 Laboratory Tests 10/04/16 05:45: Sodium Level 142, Potassium Level 4.0, Chloride Level 105, Carbon Dioxide Level 24, Anion Gap 13, Blood Urea Nitrogen 16, Creatinine 1.2H, Estimat Glomerular Filtration Rate 46.7, Glucose Level 93, Uric Acid 2.6L, Calcium Level 9.2, Phosphorus Level 2.5, Magnesium Level 1.7, Total Bilirubin 0.4, Aspartate Amino Transf (AST/SGOT) 275H, Alanine Aminotransferase (ALT/SGPT) 124H, Alkaline Phosphatase 36, Total Creatine Kinase 2837H, Total Protein 6.2L, Albumin 3.6, Globulin 2.6, Albumin/Globulin Ratio 1.3 10/04/16 07:35: Urine Eosinophils None seen Height (Feet): 5 Height (Inches): 5.00 Weight (Pounds): 105 General Appearance: no apparent distress Objective other PE not changed GILL WALTERS Oct 04, 2016 15:12
--- NOTE | 2016-10-04 18:31 | Pulmonology Progress Note ---
Assessment/Plan Problems: (1) ATN (acute tubular necrosis) (2) Rhabdomyolysis (3) HIV disease Assessment/Plan improving check electrolytes renal us renal and ID evaluation med/surg Subjective Allergies: Coded Allergies: No Known Allergies (Unverified , 09/30/16) Objective Last 24 Hour Vital Signs Date Time Temp Pulse Resp B/P Pulse Ox O2 Delivery O2 Flow Rate FiO2 10/04/16 12:17 97.2 10/04/16 12:00 97.7 51 20 107/73 98 Room Air 10/04/16 08:00 97.2 65 20 102/65 98 Room Air 10/04/16 07:36 76 18 Room Air 10/04/16 04:00 97.5 62 20 119/57 97 Room Air 10/04/16 00:00 96.7 65 20 110/60 95 Room Air 10/03/16 20:00 98.2 60 20 102/64 99 Room Air 10/03/16 19:45 71 18 Room Air Intake and Output 10/03/16 10/04/16 19:00 07:00 Intake Total 925 ml 900 ml Balance 925 ml 900 ml Intake Oral 200 ml IV Total 725 ml 900 ml # Voids 3 2 Laboratory Tests 10/04/16 05:45: Sodium Level 142, Potassium Level 4.0, Chloride Level 105, Carbon Dioxide Level 24, Anion Gap 13, Blood Urea Nitrogen 16, Creatinine 1.2H, Estimat Glomerular Filtration Rate 46.7, Glucose Level 93, Uric Acid 2.6L, Calcium Level 9.2, Phosphorus Level 2.5, Magnesium Level 1.7, Total Bilirubin 0.4, Aspartate Amino Transf (AST/SGOT) 275H, Alanine Aminotransferase (ALT/SGPT) 124H, Alkaline Phosphatase 36, Total Creatine Kinase 2837H, Total Protein 6.2L, Albumin 3.6, Globulin 2.6, Albumin/Globulin Ratio 1.3 10/04/16 07:35: Urine Eosinophils None seen MINOO WORKMAN Oct 04, 2016 18:31
--- NOTE | 2016-10-05 10:19 | Discharge Summary ---
Discharge Summary Hospital Course Date of Admission Oct 01, 2016 at 01:32 Date of Discharge Oct 04, 2016 at 14:22 Admitting Diagnosis Renal failure HPI Sherri Etienne is a 56 year old female who was admitted on Oct 01, 2016 at 01:32 for Renal Failure Hospital Course [id number] Discharge Discharge Disposition Patient was discharged to HOME. Refused skilled nursing placement. Discharge Diagnoses: Latoya Eli NP Oct 05, 2016 10:18
--- NOTE | 2016-10-06 00:30 | Discharge Summary 2 SIG ---
DATE OF ADMISSION: 10/01/2016 DATE OF DISCHARGE: 10/04/2016 CONSULTANTS: 1. Kaden Sabillon M.D. 2. Nathaniel Parker M.D. BRIEF HOSPITAL COURSE: The patient is a 56-year-old female with HIV was brought in by paramedics [place] She complained of difficulty ambulating due to weakness on bilateral extremities. On arrival to ED, she was tachycardic and clinically appeared dehydrated with dry skin turgor. CT of the head was negative. Laboratories showed an elevated creatinine 4.3, BUN 70, sodium 151, and chloride 105. CPK was 1413. Troponin was negative. She was admitted for acute tubular necrosis and rhabdomyolysis and was given IV hydration. The patient was not aware of her CD4 count and viral load and was given Genvoya and Bactrim DS. She presented with elevated liver transaminases. Hepatitis panel was negative. CD4 count was 109. Kidney ultrasound showed unremarkable kidneys. Renal function improved. The patient was eventually discharged. Advised to follow up as outpatient. FINAL DIAGNOSES: 1. Acute renal failure secondary to acute tubular necrosis. 2. Rhabdomyolysis. 3. Human immunodeficiency virus. 4. Elevated liver transaminases suspect due to alcohol abuse. 5. Anemia. 6. Generalized weakness. 7. Diabetes. Ricky Amador M.D. I have been assigned to dictate discharge summary on this account and I was not involved in the patient's management. Latoya Eli N.P. DR: AYESHA JOB#: [id number] CC: MILA
== END 2016-10-04 14:22 | disposition home or self-care (01) | DRG 460 ==
LOC: EDBD 21:56 → EMR 10-01 00:04 → 2E 10-01 01:32 → EDBEDREQ 10-01 03:44 → 2E 10-01 22:09 → 4E 10-02 18:49
DX: N17.0 Acute kidney failure with tubular necrosis (principal); B20 Human immunodeficiency virus [HIV] disease; M62.82 Rhabdomyolysis; F10.188 Alcohol abuse with other alcohol-induced disorder; D64.9 Anemia, unspecified; E11.9 Type 2 diabetes mellitus without complications; Z59.0 Homelessness; R53.1 Weakness
CPT/HCPCS: 36415; 70450; 71010; 76775; 80053; 80061; 81001; 82550; 82553; 82962; 82977; 83036; 83735; 83880; 84100; 84165; 84439; 84443; 84481; 84484; 84550; 85025; 85651; 86140; 86360; 86705; 86709; 86803; 87340; 89050; 93005; 94664; C9399; J1815